=== PATIENT | female | born 1980 | race Caucasian/White ===

== ENCOUNTER → 2022-03-11 | Outpatient (CLI) | payer OTHER ==
[~2022-03-11] MED LIST: Verotin-Gr Cap1 EACH PO
[2022-03-12 19:08] LABS: HPV 16 Negative (Negative); HPV 18 Negative (Negative); HPV OTHER HR TYPES Negative (Negative)
== END | disposition home or self-care (01) ==
LOC: LAB 08:30 → LAB SHORT 08:30
PROVIDERS: Nurse Practitioner
DX: Z12.4 Encounter for screening for malignant neoplasm of cervix (principal)
CPT/HCPCS: 87624; G0123

== ENCOUNTER → 2025-09-18 | Outpatient (CLI) | payer OTHER ==
[2025-09-18 09:26] LABS: BASOPHILS ABSOLUTE AUTO 0.05 K/mm3 (0.00-0.23); BASOPHILS PERCENT AUTO 1 % (0-2); EOSINOPHILS ABSOLUTE AUTO 0.07 K/mm3 (0.00-0.68); EOSINOPHILS PERCENT AUTO 1 % (0-6); Hematocrit 44.0 % (33.0-51.0); Hemoglobin 14.8 g/dL (11.5-16.0); IMMATURE GRAN ABSOLUTE AUTO 0.02 K/mm3 (0.00-0.10); IMMATURE GRAN PERCENT AUTO 0 % (0-1); LYMPHOCYTES ABSOLUTE AUTO 0.79 K/mm3 (0.84-5.20); LYMPHOCYTES PERCENT AUTO 13 % (21-46); MONOCYTES ABSOLUTE AUTO 0.40 K/mm3 (0.16-1.47); MONOCYTES PERCENT AUTO 7 % (4-13); Mean Corpuscular HGB Conc 33.6 g/dL (31.5-36.5); Mean Corpuscular Volume 87 fL (80-100); NEUTROPHILS ABSOLUTE AUTO 4.79 K/mm3 (1.96-9.15); NEUTROPHILS PERCENT AUTO 78 % (41-73); NRBC ABSOLUTE 0.00 K/mm3 (0.00-0.02); NRBC Auto 0.0 /100 WBC (0.0-0.2); Platelet Count 283 K/mm3 (150-400); RDW Coefficient Variation 13.2 % (11.7-14.2); RDW Standard Deviation 41.1 fL (35.1-46.3)
[2025-09-18 10:12] LABS: Alanine Aminotransfer (ALT/SGP 18.0 U/L (12-78); Albumin, Blood 4.1 g/dL (3.4-5.0); Albumin/Globulin Ratio 1.2 (0.8-1.8); Anion Gap 11.0 mmol/L (3-11); Aspartate Aminotrans (AST/SGOT 12.0 U/L (12-37); Bilirubin, Total 0.6 mg/dL (0.1-1.0); Blood Urea Nitrogen 11.0 mg/dL (8-24); CO2, Blood 23.0 mmol/L (21-32); Calcium, Blood 8.9 mg/dL (8.5-10.1); Chloride, Blood 107.0 mmol/L (98-108); Creatinine, Blood 0.72 mg/dL (0.40-1.00); Globulin, Blood 3.4 g/dL (2.2-4.0); Glucose, Blood 123.0 mg/dL (70-99); Potassium, Blood 3.6 mmol/L (3.5-5.5); Sodium, Blood 137.0 mmol/L (136-145); Total Protein, Blood 7.5 g/dL (6.4-8.2)
== END | disposition home or self-care (01) ==
LOC: LAB 09:22 → LAB SHORT 09:22
PROVIDERS: Physician Assistant
DX: R10.9 Unspecified abdominal pain (principal); R31.9 Hematuria, unspecified
CPT/HCPCS: 80053; 83690; 85025; 87086; 87147

== ENCOUNTER 2025-10-06 20:06 | Emergency (ER) | payer OTHER ==
[~2025-10-06] VITALS: Ht 165.1 cm; Wt 72.6 kg
[2025-10-06] MEDS ORDERED: HYDROmorphone HCl/Pf 1MG SYR IV ONE (20:50)
[2025-10-06] MEDS ORDERED: Ketorolac Tromethamine 15mg Vial IV ONE (20:50)
[2025-10-06 21:13] LABS: BASOPHILS ABSOLUTE AUTO 0.04 K/mm3 (0.00-0.23); BASOPHILS PERCENT AUTO 0 % (0-2); EOSINOPHILS ABSOLUTE AUTO 0.02 K/mm3 (0.00-0.68); EOSINOPHILS PERCENT AUTO 0 % (0-6); Hematocrit 42.9 % (33.0-51.0); Hemoglobin 14.4 g/dL (11.5-16.0); IMMATURE GRAN ABSOLUTE AUTO 0.03 K/mm3 (0.00-0.10); IMMATURE GRAN PERCENT AUTO 0 % (0-1); LYMPHOCYTES ABSOLUTE AUTO 0.60 K/mm3 (0.84-5.20); LYMPHOCYTES PERCENT AUTO 6 % (21-46); MONOCYTES ABSOLUTE AUTO 0.48 K/mm3 (0.16-1.47); MONOCYTES PERCENT AUTO 5 % (4-13); Mean Corpuscular HGB Conc 33.6 g/dL (31.5-36.5); Mean Corpuscular Volume 86 fL (80-100); NEUTROPHILS ABSOLUTE AUTO 8.33 K/mm3 (1.96-9.15); NEUTROPHILS PERCENT AUTO 88 % (41-73); NRBC ABSOLUTE 0.00 K/mm3 (0.00-0.02); NRBC Auto 0.0 /100 WBC (0.0-0.2); Platelet Count 279 K/mm3 (150-400); RDW Coefficient Variation 13.0 % (11.7-14.2); RDW Standard Deviation 40.3 fL (35.1-46.3)
[2025-10-06 21:31] LABS: Magnesium, Blood 1.9 mg/dL (1.6-2.4)
[2025-10-06 21:32] LABS: Alanine Aminotransfer (ALT/SGP 15.0 U/L (12-78); Albumin, Blood 4.2 g/dL (3.4-5.0); Albumin/Globulin Ratio 1.2 (0.8-1.8); Anion Gap 12.0 mmol/L (3-11); Aspartate Aminotrans (AST/SGOT 9.0 U/L (12-37); Bilirubin, Total 0.7 mg/dL (0.1-1.0); Blood Urea Nitrogen 15.0 mg/dL (8-24); CO2, Blood 21.0 mmol/L (21-32); Calcium, Blood 9.1 mg/dL (8.5-10.1); Chloride, Blood 107.0 mmol/L (98-108); Creatinine, Blood 0.96 mg/dL (0.40-1.00); Globulin, Blood 3.5 g/dL (2.2-4.0); Glucose, Blood 112.0 mg/dL (70-99); Potassium, Blood 3.6 mmol/L (3.5-5.5); Sodium, Blood 136.0 mmol/L (136-145); Total Protein, Blood 7.7 g/dL (6.4-8.2)
[2025-10-06 22:08] LABS: Source, Urine Clean Catch
[2025-10-06 22:12] LABS: Bilirubin, Urine Neg (Neg); Glucose Qualitative, Urine Neg (Neg); Ketones, Urine 3+ (Neg); Leukocyte Esterase, Urine Neg (Neg); Protein, Urine 1+ (Neg); Specific Gravity, Urine 1.015 (1.003-1.022); Urobilinogen, Urine NORM (Normal)
[2025-10-06 22:19] LABS: Color, Urine Yellow (P-Yellow)
[2025-10-06 22:21] LABS: Red Blood Cells, Urine 25-50 /hpf (0-2); White Blood Cells, Urine 0-2 /hpf (0-5)
[2025-10-07] VITALS: BP 140/97
[2025-10-07] MEDS ORDERED: ONDA4 PO (00:59)
[2025-10-07] MEDS ORDERED: RX Prepack 2 Tabs Ondansetron ODT 4MG UD ONE (01:00)
[2025-10-07] MEDS ORDERED: PHENA200 PO (01:00)
[2025-10-07] MEDS ORDERED: RX Prepack 6 Tabs Oxycodone 5mg UD ONE (01:00)
== END 2025-10-07 01:14 | disposition home or self-care (01) ==
LOC: ER 20:06
PROVIDERS: Student in an Organized Health Care Education/Training Program
DX: N13.2 Hydronephrosis with renal and ureteral calculous obstruction (principal); Z88.5 Allergy status to narcotic agent; Z79.899 Other long term (current) drug therapy
CPT/HCPCS: 74177; 80053; 81001; 83735; 84703; 85025; 96374-59; 99284-25; A9270; J1885; J7120; Q9967

== ENCOUNTER → 2025-10-16 | Outpatient (CLI) | payer OTHER ==
[~2025-10-16] MED LIST changes: +ONDA4 PO; +PHENA200 PO
[2025-10-21 10:41] LABS: CALCIUM, URINE - PER 24H 160 mg/d (100-250); CALCIUM, URINE - PER VOLUME 20.0 mg/dL; CHLORIDE, URINE - PER 24H 82 mmol/d (140-250); CHLORIDE, URINE - PER VOLUME 102 mmol/L; CITRIC ACID, URINE - PER 24H 850 mg/d (320-1240); CITRIC ACID,URINE - PER VOLUME 1063 mg/L; CREATININE, URINE - PER 24H 1104 mg/d (700-1600); CREATININE, URINE - PER VOLUME 138 mg/dL; HOURS COLLECTED 24 hr; MAGNESIUM, URINE - PER VOLUME 8.6 mg/dL; MAGNESIUM, URINE PER 24H 69 mg/d (12-199); OXALATE, URINE - PER 24H 18 mg/d (13-40); OXALATE, URINE - PER VOLUME 22 mg/L; PHOSPHORUS, URINE - PER 24H 536 mg/d (400-1300); PHOSPHORUS, URINE - PER VOLUME 67 mg/dL; POTASSIUM, URINE - PER 24H 29 mmol/d (25-125); POTASSIUM, URINE - PER VOLUME 36 mmol/L; SODIUM, URINE - PER 24H 115 mmol/d (51-286); SODIUM, URINE - PER VOLUME 144 mmol/L; SULFATE, URINE - PER 24H 8 mmol/d (6-30); SULFATE, URINE - PER VOLUME 10 mmol/L; URIC ACID, URINE - PER 24H 392 mg/d (250-750); URIC ACID, URINE - PER VOLUME 49.0 mg/dL; URINE SUPERSATURATION INTERP Abnormal; URINE SUPERSATURATION, CAHPO4 5.96; URINE SUPERSATURATION, CAOX 5.84; URINE SUPERSATURATION, UA CALC 0.08
== END | disposition home or self-care (01) ==
LOC: LAB 06:50 → LAB SHORT 06:50 → LAB FUT 10-10 17:20 → EDSTATUS 10-10 17:20
PROVIDERS: Physician Assistant Medical
DX: N20.0 Calculus of kidney (principal)
CPT/HCPCS: 81003; 81050; 82131; 82140; 82340; 82436; 82507; 82570; 83735; 83935; 83945; 84105; 84133; 84300; 84392; 84560